=== PATIENT | female | born 1935 ===

== ENCOUNTER 2024-06-05 05:46 | Day surgery (SDC) | payer OTHER ==
[~2024-06-05 05:46] MED LIST: LEVO-T100 MCG PO; PEPCID40 MG PO; SINGULAIR10 MG PO; SYMBICORT 16010.2 GM IH; ZOCOR20 MG PO
[2024-06-05] MEDS ORDERED: CEFAZOLIN SODIUM 1,000 MG VIAL IV ONE (10:15)
[2024-06-05] MEDS ORDERED: GENTAMICIN SULFATE 40 MG/ML VIAL IR ONE (10:30)
[2024-06-05] MEDS ORDERED: CIPRO500 MG PO (12:30)
== END 2024-06-05 13:55 | disposition home or self-care (01) ==
LOC: CIR.AMB 05:46
PROVIDERS: ATTEND Obstetrics & Gynecology Gynecology
DX: R39.14 Feeling of incomplete bladder emptying (principal); T83.198A Other mechanical complication of other urinary devices and implants, initial encounter; N39.3 Stress incontinence (female) (male); R39.15 Urgency of urination; E03.9 Hypothyroidism, unspecified; F41.9 Anxiety disorder, unspecified; J45.909 Unspecified asthma, uncomplicated; M19.90 Unspecified osteoarthritis, unspecified site; Z88.6 Allergy status to analgesic agent; Z88.1 Allergy status to other antibiotic agents